=== PATIENT | female | born 1935 | race Hispanic/Latino ===

== ENCOUNTER 2016-08-22 08:02 | Day surgery (SDC) | payer MEDICARE, MEDICAID ==
[2016-08-22 08:26] VITALS: BMI 25.7
[2016-08-22 08:43] VITALS: TEMP 98.2
[2016-08-22] MEDS ORDERED: Midazolam 2 MG/2 ML VIAL ONE (10:47)
[2016-08-22] MEDS ORDERED: Propofol 10 mg/ml Inj (20 ML) ONE (10:48)
[2016-08-22 11:40] VITALS: O2SAT 99
[2016-08-22 11:49] VITALS: PULSE 89
[2016-08-22 12:21] VITALS: BP 114/56; RESP 17
== END 2016-08-22 12:19 | disposition home or self-care (01) ==
LOC: C.ENDO 08:02
PROVIDERS: ATTEND Internal Medicine Gastroenterology
DX: K62.1 Rectal polyp (principal); K59.00 Constipation, unspecified; R19.5 Other fecal abnormalities; K57.90 Diverticulosis of intestine, part unspecified, without perforation or abscess without bleeding
CPT/HCPCS: 45385; 88305; J2250; J2704